=== PATIENT | male | born 1980 | race Caucasian/White ===

== ENCOUNTER 2022-07-26 13:45 | Inpatient (IN) | payer MEDICAID ==
[~2022-07-26] VITALS: Ht 175.3 cm; Wt 88.6 kg
[2022-07-26] MEDS ORDERED: SODIUM CHLORIDE 0.9% 1,000 ML IV ONE (14:00)
[2022-07-26 14:36] LABS: BASOPHILS % 2.7 % (0.0-2.0); EOSINOPHILS % 1.2 % (0.0-5.0); HEMATOCRIT. 39.4 % (42.0-52.0); HEMOGLOBIN. 13.3 g/dL (14.0-18.0); LYMPHOCYTES % 49.5 % (20.0-50.0); MEAN CORPUSCULAR HEMOGLOBIN 31.8 pg (28.0-32.0); MEAN CORPUSCULAR VOLUME 94.1 fL (80.0-94.0); MEAN PLATELET VOLUME 10.3 fl (7.4-10.4); MONOCYTES % 11.4 % (2.0-8.0); NEUTROPHILS % 35.2 % (40.0-76.0); PLATELET 65 x1000/uL (130-400); RED BLOOD CELL COUNT 4.18 mill/uL (4.7-6.1); RED CELL DISTRIBUTION WIDTH 15.4 % (11.6-14.6)
[2022-07-26 14:44] LABS: CHLORIDE 112 mEq/L (98-107)
[2022-07-26 14:55] LABS: BETA HYDROXYBUTYRATE 0.1 mMol/L (0.0-0.3)
[2022-07-26 15:01] LABS: ETHANOL BLOOD 433 mg/dL (-10)
[2022-07-26] MEDS ORDERED: FOLIC ACID 1 MG, THIAMINE HCL 100 MG, MVI, ADULT NO.1 10 ML in DEXTROSE 5% WATER 1,000 ML IV ONE ×4 (15:15)
[2022-07-26] MEDS ORDERED: CALCIUM GLUCONATE 1GM PREMIX 50 ML IV ONE (15:30)
[2022-07-26] MEDS ORDERED: CALCIUM CHLORIDE 1,000 MG in DEXT 5% WATER 90 ML IV ONE (15:30)
[2022-07-26 17:53] LABS: CHLORIDE 114 mEq/L (98-107)
[2022-07-26 21:40] VITALS: BP 102/54
[2022-07-26] MEDS ORDERED: IPRATROPIUM/ALBUTEROL 0.5-3(2.5)MG/3ML NEB NEB PRN (21:45)
[2022-07-26] MEDS ORDERED: HYDROCODONE/ACETAMINOPHEN 5/325MG TABLET PO PRN (21:45)
[2022-07-26] MEDS ORDERED: MAGNESIUM/ALUMINUM HYDROXIDE/SIMETHICONE 30ML UDC PO PRN (21:45)
[2022-07-26] MEDS ORDERED: LORAZEPAM 2MG/ML CPJ IV PRN (21:45)
[2022-07-26] MEDS ORDERED: ACETAMINOPHEN 325MG TABLET PO PRN ×2 (21:45)
[2022-07-26] MEDS ORDERED: DEXTROSE 50% WATER 50ML SYRINGE IV PRN (21:45)
[2022-07-26] MEDS ORDERED: ONDANSETRON HCL 4MG/2ML INJ IV PRN (21:45)
[2022-07-26] MEDS ORDERED: HYDRALAZINE 20MG/ML VIAL IV PRN (22:45)
[2022-07-26] MEDS ORDERED: ENOXAPARIN 40MG/0.4ML SYR SUBCUT SCH (23:00)
[2022-07-26 23:30] LABS: D-DIMER 1.62 mg/L FEU (<0.50); INR 1.3
[2022-07-26 23:53] LABS: PHOSPHORUS 3.5 mg/dL (2.5-4.9)
[2022-07-27] MEDS ORDERED: KCL 20MEQ/100ML PREMIX 100 ML IV NR
[2022-07-27 00:44] LABS: VITAMIN B12 SERUM >2000 pg/mL pg/mL (211-911)
[2022-07-27] MEDS ORDERED: MAGNESIUM 1 G PREMIX 100 ML IV NR (01:00)
[2022-07-27] MEDS ORDERED: DEXTROSE 50% WATER 50ML SYRINGE IV PRN (01:15)
[2022-07-27] MEDS ORDERED: SODIUM CHLORIDE 0.9% 1,000 ML IV NR (01:15)
[2022-07-27] MEDS ORDERED: LORAZEPAM 2MG/ML CPJ IV PRN (01:45)
[2022-07-27 04:00] VITALS: BP 102/63
[2022-07-27] MEDS ORDERED: WATER IV SCH (05:00)
[2022-07-27] MEDS ORDERED: DEXT 5% IV SCH (05:00)
[2022-07-27] MEDS ORDERED: VANCOMYCIN IV SCH (05:00)
[2022-07-27 06:19] LABS: BASOPHILS % 2.6 % (0.0-2.0); EOSINOPHILS % 2.8 % (0.0-5.0); HEMATOCRIT. 35.1 % (42.0-52.0); LYMPHOCYTES % 51.8 % (20.0-50.0); MEAN CORPUSCULAR HEMOGLOBIN 31.9 pg (28.0-32.0); MEAN CORPUSCULAR VOLUME 93.2 fL (80.0-94.0); MEAN PLATELET VOLUME 10.5 fl (7.4-10.4); MONOCYTES % 11.7 % (2.0-8.0); NEUTROPHILS % 31.1 % (40.0-76.0); PLATELET 51 x1000/uL (130-400); RED BLOOD CELL COUNT 3.76 mill/uL (4.7-6.1); RED CELL DISTRIBUTION WIDTH 14.9 % (11.6-14.6)
[2022-07-27 07:05] LABS: CHLORIDE 108 mEq/L (98-107)
[2022-07-27 07:26] LABS: CREATINE KINASE 577 IU/L (39-308); HDL CHOLESTEROL 38 mg/dL (40-59); T4 FREE 1.01 ng/dL (0.76-1.46)
[2022-07-27] MEDS ORDERED: INSULIN LISPRO 100 UNITS/ML SUBCUT SCH ×2 (07:40→08:20)
[2022-07-27] MEDS ORDERED: BLOOD SUGAR DIAGNOSTIC STRIP TEST SCH ×2 (07:40→09:00)
[2022-07-27 08:34] LABS: CLARITY URINE CLEAR (CLEAR); COLOR URINE DARK YELLOW (YELLOW)
[2022-07-27 08:35] LABS: PROTEIN URINE NEGATIVE (NEGATIVE); SPECIFIC GRAVITY URINE 1.034 (1.005-1.030)
[2022-07-27 08:36] LABS: KETONES URINE NEGATIVE (NEGATIVE); NITRITE URINE NEGATIVE (NEGATIVE); OCCULT BLOOD URINE NEGATIVE (NEGATIVE); PH URINE 7.5 (4.5-8.0); UROBILINOGEN URINE >8.0 E.U./dL (0.2-1.0)
[2022-07-27 08:37] LABS: LEUKOCYTE ESTERASE URINE NEGATIVE (NEGATIVE)
[2022-07-27 08:47] LABS: *AMPHETAMINES SCREEN URINE NEGATIVE (NEGATIVE); *BARBITURATES SCREEN URINE NEGATIVE (NEGATIVE); *BENZODIAZEPINES SCREEN URINE NEGATIVE (NEGATIVE); *COCAINE SCREEN URINE NEGATIVE (NEGATIVE); CANNABINOID URINE SCREEN NEGATIVE (NEGATIVE); METHADONE URINE SCREEN NEGATIVE (NEGATIVE); OPIATES URINE SCREEN NEGATIVE (NEGATIVE); PHENCYCLIDINE URINE SCREEN NEGATIVE (NEGATIVE)
[2022-07-27] MEDS ORDERED: THIAMINE HCL 100MG TABLET PO SCH (09:00)
[2022-07-27] MEDS ORDERED: PANTOPRAZOLE SODIUM 40 MG/VIAL IV SCH (09:00)
[2022-07-27] MEDS ORDERED: FOLIC ACID 1MG TABLET PO SCH (09:00)
[2022-07-27] MEDS ORDERED: PIPERACILLIN/TAZOBACTAM 3.375 G in DEXTROSE 5% WATER 50 ML IV SCH ×4 (09:00)
[2022-07-27] MEDS ORDERED: INSULIN GLARGINE 100 UNITS/ML SUBCUT SCH (10:00)
[2022-07-27 11:33] LABS: LDL CHOLESTEROL 115 mg/dL (5-100)
[2022-07-27 13:45] LABS: HEPATITIS B SURFACE AB 3.5 mIU/mL
[2022-07-27] MEDS ORDERED: VANCOMYCIN 1G PREMIX 200 ML IV SCH (14:00)
[2022-07-27] MEDS ORDERED: MVI, ADULT NO.1 10 ML, FOLIC ACID 1 MG, THIAMINE HCL 100 MG in SODIUM CHLORIDE 0.9% 1,0... IV SCH ×4 (15:00)
[2022-07-27 22:29] LABS: CREATINE KINASE MB FRACTION 5.2 ng/mL (0.5-3.6)
== END 2022-07-27 09:46 | disposition left against medical advice (07) | DRG 720 ==
LOC: ER 13:45 → EDBEDREQTM 19:51 → EDBEDREQ 19:51 → SUPCPDRO 20:25 → 7WST 21:53
PROVIDERS: ADMIT Internal Medicine; ATTEND Internal Medicine
DX: A41.9 Sepsis, unspecified organism (principal); G92.9 Unspecified toxic encephalopathy; E83.51 Hypocalcemia; E11.9 Type 2 diabetes mellitus without complications; E80.6 Other disorders of bilirubin metabolism; K70.10 Alcoholic hepatitis without ascites; E87.6 Hypokalemia; D53.9 Nutritional anemia, unspecified; F10.129 Alcohol abuse with intoxication, unspecified; Y90.8 Blood alcohol level of 240 mg/100 ml or more; Z79.84 Long term (current) use of oral hypoglycemic drugs; Z79.4 Long term (current) use of insulin
CPT/HCPCS: 36415; 71045; 80053; 80061; 80305; 80320; 81003; 82010; 82140; 82330; 82550; 82553; 82607; 82746; 82962; 82977; 83036; 83605; 83735; 83970; 84100; 84145; 84439; 84443; 84481; 84484; 85025; 85379; 86706; 86803; 99285; J0610; J2543; J3370; J3411; J3475; J3480; J3490; J7030; J7060; J7070; G0480

== ENCOUNTER 2025-01-29 22:40 | Emergency (ER) | payer MEDICAID ==
[~2025-01-29] VITALS: Ht 172.7 cm; Wt 84.0 kg
[2025-01-29 22:47] VITALS: TEMP 98; O2SAT 100
[2025-01-29] MEDS: TETANUS, DIPHTHERIA, PERTUSSIS VAC/PF 0.5ML (>10YR OLD) IM ONE (23:38)
[2025-01-29 23:50] LABS: BASOPHILS % 0.9 % (0.0-2.0); EOSINOPHILS % 1.5 % (0.0-5.0); HEMATOCRIT. 35.0 % (42.0-52.0); HEMOGLOBIN. 11.5 g/dL (14.0-18.0); LYMPHOCYTES % 51.1 % (20.0-50.0); MEAN PLATELET VOLUME 9.2 fl (7.4-10.4); MONOCYTES % 13.1 % (2.0-8.0); NEUTROPHILS % 33.4 % (40.0-76.0); PLATELET 73 x1000/uL (130-400); RED BLOOD CELL COUNT 4.06 mill/uL (4.7-6.1); RED CELL DISTRIBUTION WIDTH 18.1 % (11.6-14.6)
[2025-01-29 23:56] LABS: CREATININE 0.7 mg/dL (0.6-1.3); UREA NITROGEN BLOOD < 5 mg/dL (9-23)
[2025-01-30 00:40] LABS: ETHANOL BLOOD 348 mg/dL (<10)
[2025-01-30 04:30] VITALS: BP 98/60; PULSE 92; RESP 13; O2SAT 95
[2025-02-03] MEDS ORDERED: FOLI-43 MT ×2 (10:42→11:18)
[2025-02-03] MEDS ORDERED: METF-416 MT ×2 (10:42→11:18)
[2025-02-03] MEDS ORDERED: THIA100T72 MT ×2 (10:42→11:18)
[2025-02-03] MEDS ORDERED: INSU100I28 SQ (10:42)
== END 2025-01-30 04:45 | disposition home or self-care (01) ==
LOC: ER 22:40
DX: S00.81XA Abrasion of other part of head, initial encounter (principal); E11.9 Type 2 diabetes mellitus without complications; F10.129 Alcohol abuse with intoxication, unspecified; R51.9 Headache, unspecified; Z79.899 Other long term (current) drug therapy; W01.0XXA Fall on same level from slipping, tripping and stumbling without subsequent striking against object, initial encounter; Y93.89 Activity, other specified; Y92.89 Other specified places as the place of occurrence of the external cause; Y99.8 Other external cause status; Y90.8 Blood alcohol level of 240 mg/100 ml or more
CPT/HCPCS: 36415; 80048; 80320; 85025; 90471; 90715; 99285; G0480

== ENCOUNTER 2025-01-31 18:25 | Emergency (ER) | payer MEDICAID ==
[~2025-01-31] VITALS: Ht 175.3 cm; Wt 87.0 kg
[2025-01-31 18:26] VITALS: BP 125/74; PULSE 107; RESP 16; TEMP 98.7; O2SAT 98
[2025-01-31 19:52] LABS: CREATININE 0.8 mg/dL (0.6-1.3)
[2025-01-31 19:53] LABS: UREA NITROGEN BLOOD < 5 mg/dL (9-23)
[2025-01-31 19:59] LABS: BASOPHILS % 1.0 % (0.0-2.0); EOSINOPHILS % 1.2 % (0.0-5.0); HEMATOCRIT. 35.4 % (42.0-52.0); HEMOGLOBIN. 11.4 g/dL (14.0-18.0); LYMPHOCYTES % 52.8 % (20.0-50.0); MEAN PLATELET VOLUME 9.9 fl (7.4-10.4); MONOCYTES % 12.6 % (2.0-8.0); NEUTROPHILS % 32.4 % (40.0-76.0); PLATELET 65 x1000/uL (130-400); RED BLOOD CELL COUNT 4.17 mill/uL (4.7-6.1); RED CELL DISTRIBUTION WIDTH 18.1 % (11.6-14.6)
[2025-01-31 21:11] LABS: ETHANOL BLOOD 410 mg/dL (<10)
== END 2025-01-31 22:13 | disposition home or self-care (01) ==
LOC: ER 18:25
DX: F10.229 Alcohol dependence with intoxication, unspecified (principal); E11.9 Type 2 diabetes mellitus without complications; R51.9 Headache, unspecified; Y90.8 Blood alcohol level of 240 mg/100 ml or more
CPT/HCPCS: 36415; 80048; 80320; 85025; 99284; G0480